=== PATIENT | male | born 1985 | race Asian ===

== ENCOUNTER 2017-01-23 19:56 | Emergency (ER) | payer OTHER ==
[2017-01-23 22:43] VITALS: BP 132/81
== END 2017-01-23 22:43 | disposition home or self-care (01) ==
LOC: ED 19:56
DX: G89.29 Other chronic pain (principal); M25.561 Pain in right knee; M25.562 Pain in left knee; M54.5 Low back pain; E11.9 Type 2 diabetes mellitus without complications; Z79.84 Long term (current) use of oral hypoglycemic drugs
CPT/HCPCS: 82962; J1885